=== PATIENT | female | born 1970 | race Hispanic/Latino ===

== ENCOUNTER → 2018-09-13 | Outpatient (CLI) | payer BC | END | disposition home or self-care (01) | LOC: RAH 12:30 | PROVIDERS: ATTEND Family Medicine | DX: S83.242A Other tear of medial meniscus, current injury, left knee, initial encounter (principal); M17.12 Unilateral primary osteoarthritis, left knee; M25.462 Effusion, left knee; M71.22 Synovial cyst of popliteal space [Baker], left knee; X58.XXXA Exposure to other specified factors, initial encounter; Y93.89 Activity, other specified; Y92.89 Other specified places as the place of occurrence of the external cause; Y99.8 Other external cause status | CPT/HCPCS: 73721 ==

== ENCOUNTER 2019-02-10 12:30 | Inpatient (IN) | payer BC ==
[~2019-02-10] VITALS: Ht 157.5 cm; Wt 68.9 kg
[2019-02-10 11:17] VITALS: BP 135/78
[2019-02-10 11:19] LABS: EOSINOPHILS % (AUTO) 2.7 % (0.0-8.0); HEMATOCRIT 37.9 % (36-48); LYMPHOCYTES % (AUTO) 38.3 % (21.0-51.0); MEAN CORPUSCULAR HEMOGLOBIN 32.7 pg (27.0-33.0); MEAN CORPUSCULAR HGB CONC 35.1 g/dL (32.0-36.0); MEAN CORPUSCULAR VOLUME 93.2 fL (79-99); MONOCYTES % (AUTO) 6.3 % (3.0-13.0); NEUTROPHILS % (AUTO) 51.7 % (40.0-77.0); PLATELET COUNT (AUTO) 197 K/uL (130-400); RED BLOOD CELL COUNT(AUTO) 4.07 MIL/uL (4.00-5.50); RED CELL DISTRIBUTION WIDTH 13.5 % (11.0-15.5); WHITE BLOOD COUNT (AUTO) 7.1 K/uL (4.8-10.8)
[2019-02-10 11:22] LABS: APPEARANCE,URINE Clear (CLEAR); BILIRUBIN,URINE Negative (NEGATIVE); COLOR,URINE Yellow (YELLOW); GLUCOSE, URINE (UA) Negative (NEGATIVE); KETONES,URINE Negative (NEGATIVE); LEUKOCYTE ESTERASE ,URINE Negative (NEGATIVE); NITRATE,URINE Negative (NEGATIVE); OCCULT BLOOD,URINE Large (NEGATIVE); PROTEIN,URINE Negative (NEGATIVE); UROBILINOGEN,URINE 0.2 mg/dL (0.2-1.0)
[2019-02-10 11:40] LABS: CREATININE 0.7 mg/dL (0.5-1.5); POTASSIUM 3.9 mmol/L (3.5-5.1)
[2019-02-10 11:48] LABS: BACTERIA,URINE Rare /HPF (None Seen); SQUAMOUS EPITHELIAL CELL,UR 0-2 /HPF (0-2); TRICHOMONAS,URINE Few /LPF (None Seen); WBC,URINE 0-1 /HPF (0-1)
[2019-02-10 12:09] LABS: INR 0.96 (0.85-1.15); PROTHROMBIN TIME 9.9 SEC (9.6-11.6)
[~2019-02-10 12:30] MED LIST: GABA-529 PO; NAPR-1023 PO
--- NOTE | 2019-02-10 17:01 | NUR ---
SPOKE WITH DR. ASH AND WILL TREAT TRICHOMONAS THE DAY OF SURGERY.
[2019-02-13] VITALS (23 sets, daily range): BP systolic 107–149; BP diastolic 60–78
[2019-02-13] MEDS ORDERED: MIDAZOLAM HCL 1 MG/ML 2ML VIAL IVPB ONE (08:23)
[2019-02-13] MEDS ORDERED: LACTATED RINGERS 1000ML 1,000 ML IV ONE ×2 (09:25→10:47)
[2019-02-13] MEDS: CEFAZOLIN SODIUM 1 GM VIAL ONE ×2 (09:54→12:30)
[2019-02-13] MEDS ORDERED: CELECOXIB 200 MG CAP ONE (10:53)
[2019-02-13] MEDS ORDERED: ACETAMINOPHEN EXTRA STRENGTH 500 MG TABLET ONE (10:53)
[2019-02-13] MEDS ORDERED: KETOROLAC TROMETHAMINE 15MG/ML ONE (10:53)
[2019-02-13] MEDS ORDERED: METOCLOPRAMIDE 10 MG/2 ML VIAL ONE (10:53)
[2019-02-13] MEDS ORDERED: OXYCODONE HCL 10 MG TAB.SR.12H PO ONE (10:54)
[2019-02-13] MEDS ORDERED: TRANEXAMIC ACID 1000MG/10ML IV ONE ×2 (11:50→14:43)
[2019-02-13] MEDS ORDERED: CEFAZOLIN SODIUM 1 GM VIAL ONE (11:50)
[2019-02-13] MEDS ORDERED: MIDAZOLAM HCL 1 MG/ML 2ML VIAL ONE (11:52)
[2019-02-13] MEDS ORDERED: ROPIVACAINE 0.5% 5MG/ML 30ML IJ ONE (11:56)
[2019-02-13] MEDS ORDERED: LIDOCAINE HCL 2% 20ML ONE (11:56)
[2019-02-13] MEDS ORDERED: FENTANYL CITRATE PF 50 MCG/1 ML 2ML VIAL ONE (13:09)
[2019-02-13] MEDS ORDERED: ONDANSETRON HCL 4 MG/2 ML VIAL ONE ×2 (13:53→15:24)
[2019-02-13] MEDS ORDERED: DEXAMETHASONE SOD PHOSPHATE 10MG/ML 1ML VIAL ONE (13:53)
[2019-02-13] MEDS ORDERED: TEMAZEPAM 15 MG CAPSULE PO PRN (14:15)
[2019-02-13] MEDS ORDERED: DiphenhydrAMINE HCL 50 MG/ML VIAL IVP PRN (14:15)
[2019-02-13] MEDS ORDERED: CALCIUM CARBONATE 500 MG TABLET PO PRN (14:15)
[2019-02-13] MEDS: ACETAMINOPHEN EXTRA STRENGTH 500 MG TABLET PO SCH ×2 (14:15→22:59)
[2019-02-13] MEDS ORDERED: TRAMADOL HCL 50 MG TABLET PO PRN (14:15)
[2019-02-13] MEDS ORDERED: GLYCOPYRROLATE 1 MG/5 ML SYRINGE ONE (14:25)
[2019-02-13] MEDS ORDERED: NEOSTIGMINE 5MG/5ML SYR IV ONE (14:25)
[2019-02-13] MEDS ORDERED: GABAPENTIN 100 MG CAPSULE PO PRN (16:30)
[2019-02-13] MEDS: SODIUM CHLORIDE 0.9% 1000ML 1,000 ML IV SCH ×2 (20:42→23:54)
[2019-02-13] MEDS: CEFAZOLIN SODIUM 1 GM VIAL IVP SCH (20:42)
[2019-02-13] MEDS: FAMOTIDINE 20MG TAB 20 MG TAB PO SCH (20:42)
[2019-02-13] MEDS: OXYCODONE HCL 5 MG TAB PO PRN (20:43)
[2019-02-13] MEDS: CELECOXIB 200 MG CAP PO SCH (20:43)
[2019-02-14 00:16] VITALS: BP 113/73
[2019-02-14] MEDS: OXYCODONE HCL 5 MG TAB PO PRN ×6 (00:52→19:35)
[2019-02-14] MEDS: CEFAZOLIN SODIUM 1 GM VIAL IVP SCH (03:05)
[2019-02-14 04:12] VITALS: BP 120/72
[2019-02-14] MEDS: ACETAMINOPHEN EXTRA STRENGTH 500 MG TABLET PO SCH ×3 (05:15→21:53)
[2019-02-14 07:48] VITALS: BP 118/67
[2019-02-14] MEDS: FAMOTIDINE 20MG TAB 20 MG TAB PO SCH ×2 (08:21→19:34)
[2019-02-14] MEDS: POLYETHYLENE GLYCOL 3350 17 GM POWD.PACK PO SCH (08:21)
[2019-02-14] MEDS: APIXABAN 2.5 MG TABLET PO SCH ×2 (08:21→19:34)
[2019-02-14] MEDS: CELECOXIB 200 MG CAP PO SCH ×2 (08:21→19:34)
--- NOTE | 2019-02-14 09:00 | NUR ---
INITIAL AND REFERAL MET PT AT BEDSIDE, ELADIO, LIVES WITH SON SANJAY WHO WILL PROVIDE TRANSPORT HOME, NO STAIRS AT HOME, NO DME, INDP PREVIOUSLY DRIVES, JADEN FOR APCE AND RENAISSENCE AND FAXED INFO CALL TO JASMIN AT [facility] AND PT IS ACCEPTED. Addendum: 02/14/19 at 1751 by DOMINIC WILEY RN CM Amended: Links added.
[2019-02-14] MEDS ORDERED: METRONIDAZOLE 500 MG TABLET PO SCH (09:15)
[2019-02-14] MEDS: ONDANSETRON HCL 4 MG/2 ML VIAL IVP PRN ×2 (10:06→15:46)
[2019-02-14] MEDS: SODIUM CHLORIDE 0.9% 1000ML 1,000 ML IV SCH (10:15)
[2019-02-14 11:27] VITALS: BP 111/60
[2019-02-14] MEDS: KETOROLAC TROMETHAMINE 15MG/ML IV PRN ×2 (15:56→22:21)
[2019-02-14 16:08] VITALS: BP 129/67
[2019-02-14 20:12] VITALS: BP 148/86
[2019-02-15 00:16] VITALS: BP 129/73
[2019-02-15] MEDS: OXYCODONE HCL 5 MG TAB PO PRN ×2 (01:32→10:28)
[2019-02-15 04:16] VITALS: BP 125/75
[2019-02-15] MEDS: ACETAMINOPHEN EXTRA STRENGTH 500 MG TABLET PO SCH ×2 (05:33→14:27)
[2019-02-15 07:54] VITALS: BP 132/66
[2019-02-15] MEDS: KETOROLAC TROMETHAMINE 15MG/ML IV PRN (07:55)
[2019-02-15] MEDS: FAMOTIDINE 20MG TAB 20 MG TAB PO SCH (10:25)
[2019-02-15] MEDS: CELECOXIB 200 MG CAP PO SCH (10:25)
[2019-02-15] MEDS: APIXABAN 2.5 MG TABLET PO SCH (10:26)
[2019-02-15] MEDS: POLYETHYLENE GLYCOL 3350 17 GM POWD.PACK PO SCH (10:26)
[2019-02-15 11:04] VITALS: BP 151/72
[2019-02-15 15:59] VITALS: BP 131/74
[2019-02-15] MEDS ORDERED: METR500T PO (16:53)
[2019-02-15] MEDS ORDERED: APIX2.5T PO (16:53)
[2019-02-15] MEDS ORDERED: HYDR-4457 PO (16:53)
--- NOTE | 2019-02-15 18:28 | NUR ---
[facility] ATTEMPTED TO CALL TO GIVE REPORT TO [facility] NURSE [phone]. WAS TOLD A NURSE WOULD CALL ME BACK. GAVE MY DIRECT CALLBACK NUMBER, AWAITING CALLBACK.
--- NOTE | 2019-02-15 19:00 | NUR ---
I have given pt and family discharge instructions on after care for a knee replacement; including signs and symptoms of infection to whatch for and report, home health company information, wound care daily dressing changes, wbat rle, walker use at all times till instructed differently, new perscriptions for pain, elequis blood thinner for 30 days, and script for flagyl for her partners infection that she also had contracted; IV access removed, dressing changed to right knee, she has a well approx. inc. line with absorbable sutures in place and dermabound glue, no redness or drainage noted; slight edema; pt and family stated understanding of all d/c instructions.
[2019-02-16] MEDS ORDERED: BISACODYL 10 MG SUPP.RECT RC PRN (14:15)
== END 2019-02-15 19:45 | disposition home health service (06) | DRG 470 ==
LOC: DAHIP 02-13 08:05 → 4AH 02-13 15:08
PROVIDERS: ADMIT Orthopaedic Surgery; ATTEND Orthopaedic Surgery
PROC: 0SRD0J9 Replacement of Left Knee Joint with Synthetic Substitute, Cemented, Open Approach (ICD-10-PCS; principal; 2019-02-13 12:53)
PROC: 3E0T3BZ Introduction of Anesthetic Agent into Peripheral Nerves and Plexi, Percutaneous Approach (ICD-10-PCS; 2019-02-13 12:53)
DX: M17.12 Unilateral primary osteoarthritis, left knee (principal); M10.9 Gout, unspecified; G89.29 Other chronic pain; A59.03 Trichomonal cystitis and urethritis; Z90.49 Acquired absence of other specified parts of digestive tract; Z82.49 Family history of ischemic heart disease and other diseases of the circulatory system
CPT/HCPCS: 36415; 80048; 81001; 84703; 85025; 85610; 87641; 88304; 88311; 96374; 96375; 97039; G0378; J0690; J1100; J1885; J2250; J2405; J2710; J2765; J2795; J3010; J3490; J7030; J7120

== ENCOUNTER 2024-02-24 15:51 | Emergency (ER) | payer BC ==
[~2024-02-24] VITALS: Ht 152.4 cm; Wt 78.0 kg
[~2024-02-24 15:51] MED LIST changes: +APIX2.5T PO; +HYDR-4457 PO; +METR500T PO; -NAPR-1023 PO
[2024-02-24 17:03] VITALS: BP 163/84; PULSE 63; RESP 16; TEMP 98.3; O2SAT 98
[2024-02-24 17:27] LABS: BASOPHILS # (AUTO) 0.03 K/uL (0.00-0.20); BASOPHILS % (AUTO) 0.4 % (0.0-5.0); EOSINOPHILS # (AUTO) 0.14 K/uL (0.00-0.70); EOSINOPHILS % (AUTO) 1.8 % (0.0-8.0); HEMATOCRIT 40.4 % (36-48); IMMATURE GRANULOCYTE ABSOLUTE 0.04 K/uL (0-1); LYMPHOCYTES # (AUTO) 2.9 K/uL (1.0-4.8); LYMPHOCYTES % (AUTO) 36.9 % (21.0-51.0); MEAN CORPUSCULAR HEMOGLOBIN 31.5 pg (27.0-33.0); MEAN CORPUSCULAR HGB CONC 33.9 g/dL (32.0-36.0); MEAN CORPUSCULAR VOLUME 92.9 fL (79-99); MONOCYTES # (AUTO) 0.6 K/uL (0.1-1.0); MONOCYTES % (AUTO) 7.8 % (3.0-13.0); NEUTROPHILS # (AUTO) 4.1 K/uL (1.8-7.7); NEUTROPHILS % (AUTO) 52.6 % (40.0-77.0); PLATELET COUNT (AUTO) 209 K/uL (130-400); RED BLOOD CELL COUNT(AUTO) 4.35 MIL/uL (4.00-5.50); RED CELL DISTRIBUTION WIDTH 12.8 % (11.0-15.5); WHITE BLOOD COUNT (AUTO) 7.7 K/uL (4.8-10.8)
[2024-02-24 17:39] LABS: CREATININE 0.7 mg/dL (0.5-1.0); POTASSIUM 3.6 mmol/L (3.5-5.1)
== END 2024-02-24 18:38 | disposition home or self-care (01) ==
LOC: EDH 15:51
DX: D25.9 Leiomyoma of uterus, unspecified (principal); R10.2 Pelvic and perineal pain; Z79.01 Long term (current) use of anticoagulants; Z90.49 Acquired absence of other specified parts of digestive tract
CPT/HCPCS: 36415; 76856; 80048; 84702; 85025